=== PATIENT | female | born 1955 | race Caucasian/White ===

== ENCOUNTER 2018-03-18 05:57 | Day surgery (SDC) | payer OTHER ==
[~2018-03-18 05:57] MED LIST: AMOXICILLIN500 MG PO; AVAPRO150 MG PO; CRESTOR20 MG PO; NORVASC5 MG PO; SYNTHROID50 MCG PO
== END 2018-03-18 11:00 | disposition home or self-care (01) ==
LOC: U 05:57 → CIR.AMB 05:57
DX: L72.0 Epidermal cyst (principal)